=== PATIENT | male | born 1950 | race Caucasian/White ===

== ENCOUNTER → 2019-04-23 | Outpatient (CLI) | payer MEDICARE, OTHER ==
--- NOTE | 2019-04-23 17:15 | KCIC ---
MR of the right knee HISTORY: Right knee pain. TECHNIQUE: Routine multiplanar sequences are obtained. FINDINGS: Mild degenerative signal and distortion of the medial meniscus. This extends through the posterior capsular margin. No definite articular surface violation. Small irregular hypointense structure just posterior to the posterior horn the medial meniscus uncertain significance, could represent a small loose body or possibly some mildly displaced meniscal tissue. No evidence of lateral meniscal tear. Anterior and posterior cruciate ligaments are intact. Medial collateral ligament is intact. Fibular collateral ligament and biceps femoris tendon attachment are intact. Iliotibial band appears unremarkable. Extensor mechanism is intact. Moderate joint effusion. Small osteochondral loose body within the lateral suprapatellar recess, measuring about 6 mm. Several small structures posterior to the medial tibial plateau compatible with small loose bodies. Severe chondromalacia at the medial patellofemoral joint. Severe cartilage loss at the medial joint compartment. Milder degenerative changes of the lateral joint compartment. No acute fracture. No aggressive bone destruction. Moderate Dow's cyst. No acute fracture. IMPRESSION: 1. Medial meniscal abnormality, compatible with a tear. 2. 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 3. Or loose bodies, largest in the suprapatellar recess. Electronically signed by: Gerardo Caballero MD (04/23/2019 5:12 PM) [id number]
== END | disposition home or self-care (01) ==
LOC: KCIC MRI 16:01
PROVIDERS: ATTEND Family Medicine
DX: M17.11 Unilateral primary osteoarthritis, right knee (principal); M25.861 Other specified joint disorders, right knee
CPT/HCPCS: 73721

== ENCOUNTER → 2019-06-07 | Day surgery (SDC) | payer MEDICARE, OTHER ==
[~2019-06-07] MED LIST: CETI10TA22 PO; FINA5TAB4 PO; IV RINGERS,LACTATED 1000ML 1,000 ML IV SCH; LIDOCAINE 2% PF 5 ML VIAL. ONE; MONT10TA49 PO; PROPOFOL 40 ML IV ONE; TAMS0.4C97 PO; TELM40TA PO
[2019-06-07 13:05] VITALS: BP 100/62
== END ==
LOC: ENDOS 11:10
PROVIDERS: ATTEND Internal Medicine Gastroenterology
DX: Z12.11 Encounter for screening for malignant neoplasm of colon (principal); K57.30 Diverticulosis of large intestine without perforation or abscess without bleeding; K64.0 First degree hemorrhoids; I10 Essential (primary) hypertension; E89.0 Postprocedural hypothyroidism; F15.90 Other stimulant use, unspecified, uncomplicated; Z72.89 Other problems related to lifestyle; Z98.890 Other specified postprocedural states; Z87.891 Personal history of nicotine dependence; Z87.442 Personal history of urinary calculi; Z87.39 Personal history of other diseases of the musculoskeletal system and connective tissue
CPT/HCPCS: G0105; J2001; J2704; 45378